=== PATIENT | male | born 1990 | race American Indian/Alaskan Native ===

== ENCOUNTER 2019-05-29 18:49 | Emergency (ER) | payer SELFPAY | END 2019-05-29 19:00 | disposition left against medical advice (07) | LOC: ED 18:49 | DX: K08.89 Other specified disorders of teeth and supporting structures (principal); Z53.21 Procedure and treatment not carried out due to patient leaving prior to being seen by health care provider ==

== ENCOUNTER 2019-07-06 13:37 | Emergency (ER) | payer SELFPAY ==
[2019-07-06 14:36] VITALS: BP 154/106
--- NOTE | 2019-07-06 14:36 | Emergency Department Report ---
Blank Doc - Documentation Documentation: 28-year-old male that presents with boil to right thigh. This initial assessment/diagnostic orders/clinical plan/treatment(s) is/are subject to change based on patient's health status, clinical progression and re- assessment by fellow clinical providers in the ED. Further treatment and workup at subsequent clinical providers discretion. Patient/guardians urged not to elope from the ED as their condition may be serious if not clinically assessed and managed. Initial orders include: 1- Patient sent to [facility] for further evaluation and treatment
[2019-07-06] MEDS ORDERED: LIDOCAINE-MPF (1%) 10 MG/1 ML VIAL 5 ML INFILTRATI ONE (17:01)
--- NOTE | 2019-07-06 17:10 | Emergency Department Report ---
- General Chief complaint: Skin/Abscess/Foreign Body Stated complaint: SWELLING IN LEGS/PAIN Time Seen by Provider: 07/06/19 14:33 Source: patient Mode of arrival: Ambulatory Limitations: No Limitations - History of Present Illness Initial comments: 28 yo male c/o of multiple skin abcesses to groin, and bilateral thigh x 1 week. Pt states he's popped them thinking it was ingrown hair but with no improvement. He admits to hx of dental abscesses. Denies any chronic medical conditions denies hx of diabetes. Denies fever and chills. MD complaint: abscess/boil -: week(s) (1) Location: genitals, LLE, RLE Quality: aching Consistency: constant Improves with: none Worsens with: none Context: none Associated symptoms: denies other symptoms Treatments Prior to Arrival: attempted to drain pus at - Related Data Previous Rx's Medication Instructions Recorded Last Taken Type Sulfamethoxazole/Trimethoprim 1 each PO BID 14 Days #28 tablet 07/06/19 Unknown Rx [Bactrim DS TAB] Allergies Allergy/AdvReac Type Severity Reaction Status Date / Time No Known Allergies Allergy Verified 07/06/19 14:36 Abscess Boil HPI - HPI Chief Complaint: Skin/Abscess/Foreign Body Stated Complaint: SWELLING IN LEGS/PAIN Time Seen by Provider: 07/06/19 14:33 Duration: 1 Week History: Yes Pain, Yes Purulent Drainage, No Fever, No Numbness, No Foreign Body, No Previous History, No Insect Bite Home Medications: Previous Rx's Medication Instructions Recorded Last Taken Type Sulfamethoxazole/Trimethoprim 1 each PO BID 14 Days #28 tablet 07/06/19 Unknown Rx [Bactrim DS TAB] Allergies/Adverse Reactions: Allergies Allergy/AdvReac Type Severity Reaction Status Date / Time No Known Allergies Allergy Verified 07/06/19 14:36 ED Review of Systems ROS: Stated complaint: SWELLING IN LEGS/PAIN Other details as noted in HPI Comment: All other systems reviewed and negative Constitutional: denies: chills, fever Skin: change in color, other (multiple skin abscess and pustules). denies: rash Neurological: denies: headache ED Past Medical Hx - Past Medical History Previous Medical History?: No - Surgical History Past Surgical History?: No - Social History Smoking Status: Never Smoker Substance Use Type: Alcohol - Medications Home Medications: Home Medications Medication Instructions Recorded Confirmed Last Taken Type Sulfamethoxazole/Trimethoprim 1 each PO BID 14 Days #28 tablet 07/06/19 Unknown Rx [Bactrim DS TAB] ED Physical Exam - General Limitations: No Limitations General appearance: alert, in no apparent distress - Head Head exam: Present: atraumatic - Eye Eye exam: Present: normal appearance - ENT ENT exam: Present: normal exam, normal orophraynx, mucous membranes moist, TM's normal bilaterally - Neck Neck exam: Absent: normal inspection, tenderness - Respiratory Respiratory exam: Present: normal lung sounds bilaterally. Absent: respiratory distress, wheezes, rales, rhonchi - Cardiovascular Cardiovascular Exam: Present: regular rate, normal rhythm, normal heart sounds - GI/Abdominal GI/Abdominal exam: Present: soft. Absent: distended, tenderness, guarding, rebound - exam: Present: normal inspection, other (open abscess to mid scrotum, flat no fluctuance). Absent: scrotal swelling - Neurological Exam Neurological exam: Present: alert, oriented X3 - Psychiatric Psychiatric exam: Present: normal affect - Skin Skin exam: Present: dry, other (right lateral thigh open skin lesion dry surrounding erythrema, small pustules to anterior left and right thigh ) ED Course Vital Signs 07/06/19 14:34 Temperature 98.6 F Pulse Rate 85 Respiratory 16 Rate Blood Pressure 154/106 [Right] O2 Sat by Pulse 99 Oximetry ED Medical Decision Making - Medical Decision Making 28 yo male with multiple small abscess to thighs, and groin area. Some appears to be from insect bites but patient denies. He states he belived they were from ingrown hair. He open and tried to express at home. Right thigh appears mildly cellulitic. All the pustules examined none warrant draining at this time Discuss with patient skin care washing with antibacterial liquid soap No s/s of sepsis afebrile with normal vital signs with exception of mildly elevated blood pressure Rocephin 1 gm IM given in ER Bactrim DS bid X 14 days. Output follow up for staph testing and folllow up. Critical Care Time: No Critical care attestation.: If time is entered above; I have spent that time in minutes in the direct care of this critically ill patient, excluding procedure time. ED Disposition Clinical Impression: Pyogenic skin abscess due to bacteria Disposition: TO HOME OR SELFCARE Is pt being admited?: No Does the pt Need Aspirin: No Condition: Stable Instructions: Abscess (ED) Additional Instructions: Wash your skin with antibacterial soap keep clean and dry. Take Antibiotic as ordered Follow up with PCP or [facility] in 3-5 days. Return to ER for increasing pain swelling and or Fever. Prescriptions: Sulfamethoxazole/Trimethoprim [Bactrim DS TAB] 1 each PO BID 14 Days #28 tablet Referrals: PRIMARY CARE, [Primary Care Provider] - 3-5 Days Forms: Work/School Release Form(ED) Time of Disposition: 17:22
== END 2019-07-06 17:38 | disposition home or self-care (01) ==
LOC: ED 13:37
DX: A49.9 Bacterial infection, unspecified (principal); F10.10 Alcohol abuse, uncomplicated
CPT/HCPCS: 96372; 99282; J0696

== ENCOUNTER 2020-01-07 16:07 | Emergency (ER) | payer SELFPAY ==
[2020-01-07 16:26] VITALS: BP 142/70
[2020-01-07] MEDS ORDERED: DIPHtheria,PERTUSSIS(ACELL),TETANUS VACCINE/PF 0.5 ML VIAL IM ONE (16:55)
--- NOTE | 2020-01-07 17:19 | XRay Report ---
RIGHT HAND 3 VIEW(S) INDICATION / CLINICAL INFORMATION: injury to right hand 5th digit COMPARISON: None available. FINDINGS: BONES / JOINT(S): Oblique fracture of the distal shaft of the little finger metacarpal with radial an d palmar angulation of the distal fracture fragment. No significant arthritis. SOFT TISSUES: Soft tissue swelling adjacent to the fracture. ADDITIONAL FINDINGS: None. Signer Name: Priscila Alcaraz MD Signed: 01/07/2020 5:14 PM Workstation Name: [id number]
[2020-01-07] MEDS ORDERED: ceFAZolin 1 GM VIAL IM STA (17:56)
--- NOTE | 2020-01-07 18:00 | Event Note ---
ED Screening Note Date of service: 01/07/20 Time: 16:53 ED Screening Note: 29 y/o male come for right hand 5 th digit injury happened at 03am. This initial assessment/diagnostic orders/clinical plan/treatment(s) is/are subject to change based on patients health status, clinical progression and re- assessment by fellow clinical providers in the ED. Further treatment and workup at subsequent clinical providers discretion. Patient/guardian urged not to elope from the ED as their condition may be serious if not clinically assessed and managed. Initial orders include:
--- NOTE | 2020-01-07 18:02 | Emergency Department Report ---
ED Upper Extremity Inj HPI - General Chief Complaint: Extremity Injury, Upper Stated Complaint: RIGHT HAND PAIN Time Seen by Provider: 01/07/20 17:49 Source: patient Mode of arrival: Ambulatory Limitations: No Limitations - History of Present Illness Initial Comments: 29-year-old male status post trip and fall with earlier today where he landed on a file cabinet which he thinks punctured his right hand and caused some swelling and a deformity cannot emergency department as he was unable to control the throbbing in the scant bleeding from the puncture site. No fever chills or sweats no numbness or tingling. Complaint: Injury to:: right, hand -: Sudden Other Extremity Injury: Hand: Right Handedness: right Improves With: none Worsens With: none Context: fall - Related Data Previous Rx's Medication Instructions Recorded Last Taken Type Sulfamethoxazole/Trimethoprim 1 each PO BID 14 Days #28 tablet 07/06/19 Unknown Rx [Bactrim DS TAB] Acetaminophen/Codeine [Tylenol 1 tab PO Q6H PRN #14 tab 01/07/20 Unknown Rx /Codeine # 3 tab] cephALEXin [Keflex] 500 mg PO Q6HR #40 capsule 01/07/20 Unknown Rx Allergies Allergy/AdvReac Type Severity Reaction Status Date / Time No Known Allergies Allergy Verified 07/06/19 14:36 ED Review of Systems ROS: Stated complaint: RIGHT HAND PAIN Other details as noted in HPI Comment: All other systems reviewed and negative ED Past Medical Hx - Past Medical History Previous Medical History?: No - Surgical History Past Surgical History?: No - Social History Smoking Status: Never Smoker Substance Use Type: None - Medications Home Medications: Home Medications Medication Instructions Recorded Confirmed Last Taken Type Sulfamethoxazole/Trimethoprim 1 each PO BID 14 Days #28 tablet 07/06/19 Unknown Rx [Bactrim DS TAB] Acetaminophen/Codeine [Tylenol 1 tab PO Q6H PRN #14 tab 01/07/20 Unknown Rx /Codeine # 3 tab] cephALEXin [Keflex] 500 mg PO Q6HR #40 capsule 01/07/20 Unknown Rx ED Physical Exam - General Limitations: No Limitations General appearance: alert, in no apparent distress - Head Head exam: Present: atraumatic, normocephalic - Eye Eye exam: Present: normal appearance, PERRL, EOMI Pupils: Present: normal accommodation - ENT ENT exam: Present: normal exam, mucous membranes moist - Neck Neck exam: Present: normal inspection - Respiratory Respiratory exam: Present: normal lung sounds bilaterally. Absent: respiratory distress - Cardiovascular Cardiovascular Exam: Present: regular rate, normal rhythm. Absent: systolic murmur, diastolic murmur, rubs, gallop - GI/Abdominal GI/Abdominal exam: Present: soft, normal bowel sounds - Rectal Rectal exam: Present: deferred - Extremities Exam Extremities exam: Present: normal inspection, tenderness - Expanded Upper Extremity Exam Right Hand Wrist exam: Present: tenderness, swelling, ecchymosis Hand L/R Back: 1 - small puncture site 2 - swollen and deformity Neurosensory exam: Present: other Vascular: Present: vascular compromise - Back Exam Back exam: Present: normal inspection. Absent: CVA tenderness (R), CVA tenderness (L) - Neurological Exam Neurological exam: Present: alert, oriented X3, CN II-XII intact, normal gait, motor sensory deficit, reflexes normal - Psychiatric Psychiatric exam: Present: normal affect, normal mood. Absent: anxious, flat affect, manic - Skin Skin exam: Present: warm, dry, intact, normal color. Absent: rash, cyanosis, diaphoretic, erythema, urticaria, petechiae, pallor, abrasion ED Course Vital Signs 01/07/20 16:23 Temperature 98.2 F Pulse Rate 80 Respiratory 16 Rate Blood Pressure 142/70 O2 Sat by Pulse 98 Oximetry Critical care attestation.: If time is entered above; I have spent that time in minutes in the direct care of this critically ill patient, excluding procedure time. ED Disposition Clinical Impression: Hand fracture, Open hand fracture Disposition: - TO HOME OR SELFCARE Is pt being admited?: No Does the pt Need Aspirin: No Condition: Stable Instructions: Puncture Wound (ED), Boxer Fracture (ED), Hand Fracture (ED) Prescriptions: cephALEXin [Keflex] 500 mg PO Q6HR #40 capsule Acetaminophen/Codeine [Tylenol /Codeine # 3 tab] 1 tab PO Q6H PRN #14 tab PRN Reason: Pain , Severe (7-10) Referrals: PRIMARY CAREMD [Primary Care Provider] - 3-5 Days CARRIE DUMONT MD [Staff Physician] - 3-5 Days [facility] [Provider Group] - 3-5 Days
== END 2020-01-07 18:38 | disposition home or self-care (01) ==
LOC: ED 16:07
DX: S62.326A Displaced fracture of shaft of fifth metacarpal bone, right hand, initial encounter for closed fracture (principal); W18.39XA Other fall on same level, initial encounter; Y93.89 Activity, other specified; Y92.89 Other specified places as the place of occurrence of the external cause; Y99.8 Other external cause status
CPT/HCPCS: 29125; 73130; 90471; 90715; 96372; 99283; J0690

== ENCOUNTER 2021-07-02 21:30 | Emergency (ER) | payer SELFPAY ==
[2021-07-02 23:26] LABS: Bilirubin,Urine NEG (Negative); Blood,Urine NEG (Negative); Color,Urine Yellow (Yellow); Mucus,Urine FEW /HPF; Protein,Urine <15 mg/dL mg/dL (Negative); Urobilinogen,Urine < 2.0 mg/dL (<2.0)
--- NOTE | 2021-07-03 04:43 | Emergency Department Report ---
ED N/V/D HPI - General Chief complaint: Abdominal Pain Stated complaint: ABD PAIN/RASH Time Seen by Provider: 07/03/21 02:17 Source: patient Mode of arrival: Ambulatory Limitations: No Limitations - Related Data Previous Rx's Medication Instructions Recorded Last Taken Type Sulfamethoxazole/Trimethoprim 1 each PO BID 14 Days #28 tablet 07/06/19 Unknown Rx [Bactrim DS TAB] Acetaminophen/Codeine [Tylenol 1 tab PO Q6H PRN #14 tab 01/07/20 Unknown Rx /Codeine # 3 tab] cephALEXin [Keflex] 500 mg PO Q6HR #40 capsule 01/07/20 Unknown Rx Ciprofloxacin HCl 500 mg PO BID #10 tablet 07/03/21 Unknown Rx Hyoscyamine Subl [Levsin Sl 0.125 0.125 mg SL Q4HR PRN #20 tablet 07/03/21 Unknown Rx TAB] Ondansetron [Zofran ODT TAB] 8 mg PO Q8HR #20 tab.rapdis 07/03/21 Unknown Rx Allergies Allergy/AdvReac Type Severity Reaction Status Date / Time No Known Allergies Allergy Verified 07/02/21 22:57 ED Review of Systems ROS: Stated complaint: ABD PAIN/RASH Other details as noted in HPI Comment: All other systems reviewed and negative ED Past Medical Hx - Past Medical History Previous Medical History?: No - Social History Smoking Status: Never Smoker Substance Use Type: None - Medications Home Medications: Home Medications Medication Instructions Recorded Confirmed Last Taken Type Sulfamethoxazole/Trimethoprim 1 each PO BID 14 Days #28 tablet 07/06/19 Unknown Rx [Bactrim DS TAB] Acetaminophen/Codeine [Tylenol 1 tab PO Q6H PRN #14 tab 01/07/20 Unknown Rx /Codeine # 3 tab] cephALEXin [Keflex] 500 mg PO Q6HR #40 capsule 01/07/20 Unknown Rx Ciprofloxacin HCl 500 mg PO BID #10 tablet 07/03/21 Unknown Rx Hyoscyamine Subl [Levsin Sl 0.125 0.125 mg SL Q4HR PRN #20 tablet 07/03/21 Unknown Rx TAB] Ondansetron [Zofran ODT TAB] 8 mg PO Q8HR #20 tab.rapdis 07/03/21 Unknown Rx ED Physical Exam - General Limitations: No Limitations General appearance: alert, in no apparent distress - Head Head exam: Present: atraumatic, normocephalic - Eye Eye exam: Present: normal appearance - ENT ENT exam: Present: mucous membranes moist - Neck Neck exam: Present: normal inspection - Respiratory Respiratory exam: Present: normal lung sounds bilaterally. Absent: respiratory distress - Cardiovascular Cardiovascular Exam: Present: regular rate, normal rhythm. Absent: systolic murmur, diastolic murmur, rubs, gallop - GI/Abdominal GI/Abdominal exam: Present: soft, normal bowel sounds - Rectal Rectal exam: Present: deferred - Extremities Exam Extremities exam: Present: normal inspection - Back Exam Back exam: Present: normal inspection - Neurological Exam Neurological exam: Present: alert, oriented X3 - Psychiatric Psychiatric exam: Present: normal affect, normal mood - Skin Skin exam: Present: warm, dry, intact, normal color. Absent: rash Critical care attestation.: If time is entered above; I have spent that time in minutes in the direct care of this critically ill patient, excluding procedure time. ED Disposition Disposition: 01 HOME / SELF CARE / HOMELESS Condition: Stable Instructions: Viral Gastroenteritis, Adult, Campylobacter Gastroenteritis, Food Choices to Help Relieve Diarrhea, Adult, Nausea and Vomiting, Adult Prescriptions: Ciprofloxacin HCl 500 mg PO BID #10 tablet Hyoscyamine Subl [Levsin Sl 0.125 TAB] 0.125 mg SL Q4HR PRN #20 tablet PRN Reason: Spasms Ondansetron [Zofran ODT TAB] 8 mg PO Q8HR #20 tab.rapdis Referrals: RHETT KWAN MD [Staff Physician] - 3-5 Days PRIMARY CARE, [Primary Care Provider] - 3-5 Days
[2021-07-03 05:19] VITALS: BP 145/92
== END 2021-07-03 05:20 | disposition home or self-care (01) ==
LOC: ED 21:30
DX: R10.9 Unspecified abdominal pain (principal); R21 Rash and other nonspecific skin eruption
CPT/HCPCS: 81001; 99282